=== PATIENT | male | born 1980 | race African-American/Black ===

== ENCOUNTER 2017-05-06 12:22 | Outpatient (CLI) | payer OTHER ==
--- NOTE | 2017-05-06 17:44 | MRI Report ---
EXAM: RIGHT WRIST MRI WITHOUT CONTRAST EXAM DATE: 05/06/2017 01:09 PM. CLINICAL HISTORY: Wrist swelling. COMPARISON: None. TECHNIQUE: Multiplanar, multisequence T1-weighted and fluid-sensitive sequences of the wrist without contrast. Other: None. 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 Please see jerome s 701 image 9. No acute fractures. Cartilage: The articular cartilage is unremarkable. The triangular fibrocartilage complex is unremark able. Ligaments: The scapholunate and lunotriquetral ligaments are intact. The visualized other intrinsic, extrinsic and collateral ligaments are unremarkable. Tendons: There is some increased T2 signal and synovial hypertrophic changes seen in the second exten sor compartment, involving the extensor carpi radialis brevis and extensor carpi radialis longus tend ons. Also, similar-appearing synovial thickening is seen at the fourth compartment including the exte nsor digitorum communis tendons and extensor indicis pollicis tendon. Musculature: No edema or fatty atrophy. Other: The contents of the carpal tunnel, including the median nerve, are unremarkable. Guyons canal is unremarkable. Ganglion cyst seen at the triquetral-pisiform articulation. This measures up to 6 m m on series 501 image 10. No joint effusions. The subcutaneous tissues are unremarkable. IMPRESSION: 1. No acute bony fractures. 2. 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 3. Some mild tenosynovitis seen at the second and fourth extensor compartments. 4. A 6 mm ganglion cyst arises from the triquetral-pisiform articulation. [facility] MUSCULOSKELETAL RADIOLOGY SECTION Referring Provider Line: [phone] SITE ID: [id number]
== END 2017-05-06 12:23 | disposition home or self-care (01) ==
LOC: DI 12:22
PROVIDERS: ATTEND Nurse Practitioner Family
DX: M67.431 Ganglion, right wrist (principal); M65.88 Other synovitis and tenosynovitis, other site